=== PATIENT | female | born 1935 | race Caucasian/White ===

== ENCOUNTER 2020-11-22 11:58 | Emergency (ER) | payer OTHER ==
[2020-11-22 13:22] LABS: BASOPHIL 0.5 % (0-2); EOSINOPHIL 0.7 % (0-7); HCT 44.5 % (37.0-47.0); HGB 14.3 g/dl (12.5-16.0); LYMPHOCYTE 31.6 % (15-48); MCH 30.3 pg (25.0-31.0); MCHC 32.1 g/dL (32.0-36.0); MCV 94.3 fL (78.0-100.0); MONOCYTE 10.9 % (0-12); MPV 12.2 fL (6.0-9.5); NEUTROPHIL 55.9 % (41-80); NRBC 0; PLT 198 K/uL (150-400); RBC 4.72 M/uL (4.20-5.40); RDW 13.2 % (11.5-14.0); WBC 7.5 K/uL (4.0-10.5)
[2020-11-22 13:37] LABS: ALBUMIN 3.3 g/dL (3.4-5.0); BILIRUBIN - TOTAL 0.5 mg/dL (0.2-1.0); BUN/CREAT RATIO (CALC) 16.8 RATIO; CREATININE 1.07 mg/dL (0.51-0.95); GLOBULIN (CALCULATION) 3.1 g/dL; POTASSIUM 4.1 mmol/L (3.5-5.1); TOTAL PROTEIN 6.4 g/dL (6.4-8.2)
== END 2020-11-22 16:26 | disposition home or self-care (01) ==
LOC: FER 11:58
PROVIDERS: Emergency Medicine
DX: U07.1 COVID-19 (principal); R42 Dizziness and giddiness; I10 Essential (primary) hypertension; Z87.19 Personal history of other diseases of the digestive system
CPT/HCPCS: 36415; 70450; 71045; 80053; 84484; 85025; 93005; J7040; J7050; M0239; U0002